=== PATIENT | male | born 1965 | race Two or more races ===

== ENCOUNTER 2020-12-02 09:35 | Outpatient (CLI) | payer OTHER | END 2020-12-02 11:27 | disposition home or self-care (01) | LOC: TOM 09:35 | PROVIDERS: ATTEND Otolaryngology Otology & Neurotology | DX: M89.8X8 Other specified disorders of bone, other site (principal); H90.0 Conductive hearing loss, bilateral ==

== ENCOUNTER 2021-05-08 05:30 | Day surgery (SDC) | payer OTHER ==
[~2021-05-08 05:30] MED LIST: ADULT LOW DOSE81 M1 PO; ALTACE10 MG PO
[2021-05-08] MEDS ORDERED: ZOFRAN8 MG PO (11:35)
[2021-05-08] MEDS ORDERED: CILOXAN5 ML OTIC (11:35)
[2021-05-08] MEDS ORDERED: CEPHALEXIN500 MG PO (11:35)
== END 2021-05-08 14:00 | disposition home or self-care (01) ==
LOC: CIR.AMB 05:30
PROVIDERS: ATTEND Otolaryngology Otology & Neurotology
DX: H95.192 Other disorders following mastoidectomy, left ear (principal); H74.22 Discontinuity and dislocation of left ear ossicles; H72.92 Unspecified perforation of tympanic membrane, left ear; I10 Essential (primary) hypertension; Z79.82 Long term (current) use of aspirin

== ENCOUNTER 2021-07-06 10:01 | Outpatient (CLI) | payer OTHER ==
[~2021-07-06 10:01] MED LIST changes: +CEPHALEXIN500 MG PO; +CILOXAN5 ML OTIC; +ZOFRAN8 MG PO
== END 2021-07-06 10:13 | disposition home or self-care (01) ==
LOC: TOM 10:01
PROVIDERS: ATTEND Otolaryngology Otology & Neurotology
DX: H95.11 Chronic inflammation of postmastoidectomy cavity (principal)

== ENCOUNTER 2021-07-17 08:57 | Outpatient (CLI) | payer OTHER | END 2021-07-17 09:09 | disposition home or self-care (01) | LOC: MRI 08:57 | PROVIDERS: ATTEND Otolaryngology Otology & Neurotology | DX: H90.3 Sensorineural hearing loss, bilateral (principal) | CPT/HCPCS: 70553 ==

== ENCOUNTER 2024-10-03 10:21 | Outpatient (CLI) | payer OTHER | END 2024-10-03 10:27 | disposition home or self-care (01) | LOC: RAD 10:21 | PROVIDERS: ATTEND Podiatrist Foot Surgery | DX: M20.41 Other hammer toe(s) (acquired), right foot (principal); M20.42 Other hammer toe(s) (acquired), left foot ==